=== PATIENT | female | born 1975 | race Caucasian/White ===

== ENCOUNTER 2024-02-03 14:33 | Emergency (ER) | payer OTHER ==
[2024-02-03 14:54] VITALS: BP 180/94; O2SAT 100
[2024-02-03] MEDS: DEXAMETHASONE 10 MG/ML VIAL PO STA (15:50)
[2024-02-03] MEDS: CHERRY SYRUP 10 ML UDC PO ONE (15:50)
[2024-02-03] MEDS: KETOROLAC 30 MG/ML VIAL IM STA (15:51)
--- NOTE | 2024-02-03 15:58 | ED Physician Documentation ---
PD HPI UPPER EXT INJURY - Stated complaint Stated Complaint: LT SHOULDER PX,SWELLING,N/V - Chief complaint Chief Complaint: Ext Problem - History obtained from History obtained from: Patient, Family - History of Present Illness Location: Left, Shoulder Type of injury: Other (over use kneeding cabage) Where injury occurred: Home Timing - onset: Today Timing - duration: Hours Timing - details: Abrupt onset, Still present Improved by: Rest, Immobilization Worsened by: Moving, Palpating Associated symptoms: No: Weakness, Numbness, Tingling, Swelling, Discolored Contributing factors: No: Anticoagulated, Prior ortho surgery Similar symptoms before: No diagnosis Recently seen: Not recently seen - Additonal information Additional information: 48-year-old chronic Ramo presents to the Emergency Department with left shoulder pain. She indicates that she was kneeding [place] when her shoulder began to hurt she continued through and when she finished she had worsening and worsening pain. She has pain with any movement of her shoulder and pain to direct palpation. She has had something similar to this previously which was not as severe and self resolved. Review of Systems Constitutional: denies: Fever Eyes: denies: Decreased vision, Photophobia Ears: denies: Ear pain Nose: denies: Rhinorrhea / runny nose, Congestion Throat: denies: Sore throat Cardiac: denies: Chest pain / pressure, Palpitations Respiratory: denies: Dyspnea, Cough GI: denies: Vomiting, Diarrhea PD PAST MEDICAL HISTORY - Past Medical History Musculoskeletal: Other Other Past Medical History: hx broken neck, chronic pain, ectopic pregnancies x2 - Past Surgical History Past Surgical History: No General: Cholecystectomy - Present Medications Home Medications: Ambulatory Orders Medication Instructions Recorded Confirmed HYDROcod/ACETAM 5/325 [[place] 5/325] 1 - 2 tablet PO Q6H PRN #14 tablet 02/03/24 - Allergies Allergies/Adverse Reactions: Allergies Allergy/AdvReac Type Severity Reaction Status Date / Time ciprofloxacin Allergy Hives Verified 02/03/24 14:51 codeine Allergy Hives Verified 02/03/24 14:51 - Social History Does the pt smoke?: No Smoking Status: Former smoker Does the pt drink ETOH?: Yes Does the pt have substance abuse?: Yes Substance Use and Type: Marijuana PD ED PE NORMAL - Vitals Vital signs reviewed: Yes (hypertensive ) - General General: Alert and oriented X 3, Well developed/nourished, 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 There is pain with any motion of the shoulder. If I placed the patient's shoulder in abduction she is able to hold it there. Movement of the shoulder to this position causes pain. ) Results - Vitals Vitals: Vital Signs - 24 hr 02/03/24 14:40 Temperature 36.5 C Heart Rate 80 Respiratory 18 Rate Blood Pressure 180/94 H O2 Saturation 100 Oxygen O2 Source Room air - Rads (name of study) shoulder L Relevant Findings:: Prelim report reviewed (Impression: Question calcific bursitis. No acute bony abnormality.), EMP independent interpretation of test, See rad report PD Medical Decision Making - ED course Complexity details: reviewed results, re-evaluated patient, considered differential, d/w patient, d/w family ED course: Nadja Ralph presented to the emergency department with left shoulder pain after needing CABG she had specific point tenderness over the biceps tendon insertion and she was able to hold her arm in abduction. An x-ray demonstrated calcification over the biceps tendon. I attribute all this to indicate the patient had calcific tendinitis. She is administered dexamethasone and Toradol we will place the patient on a course of narcotic pain reliever and encouraged her to use [id number] anti-inflammatory and to follow-up with orthopedics. Departure - Departure Disposition: 01 Home, Self Care Clinical Impression: Calcific tendinitis Condition: Stable Instructions: ED Tendinitis Calcific Follow-Up: Phil Braga MD [Provider Admit Priv/Credential] - Prescriptions: HYDROcod/ACETAM 5/325 [[place] 5/325] 1 - 2 tablet PO Q6H PRN #14 tablet PRN Reason: Pain Comments: i, today looks like you have calcific tendinitis and this will resolve by itself eventually. In the meantime we have provided some pain medication to use for acute pain this has been e-scribed to the [facility] in [place]. I recommend treatment of this with ibuprofen or Aleve on a regular basis. Always take this medication with food as it irritates the lining of everyone's stomach. A follow-up with orthopedics is indicated and I have given you the name of a local orthopedic surgeon. Forms: PCP List Discharge Date/Time: 02/03/24 16:36
--- NOTE | 2024-02-03 17:04 | XRAY Report ---
PROCEDURE: Shoulder 2+V LT INDICATIONS: pain TECHNIQUE: 3 views of the shoulder were acquired. COMPARISON: None. FINDINGS: Bones: No fractures or dislocations. No suspicious bony lesions. Visualized ribs appear intact. Soft tissues: There are soft tissue calcifications adjacent to the humeral head. The visualized lung s are within normal limits. IMPRESSION: Question calcific bursitis. No acute bony abnormality. Reviewed by: Rolan Arthur MD on 02/03/2024 5:03 PM PDT Approved by: Rolan Arthur MD on 02/03/2024 5:03 PM PDT Station ID: [id number]
== END 2024-02-03 16:36 | disposition home or self-care (01) ==
LOC: ED 14:33
DX: M75.32 Calcific tendinitis of left shoulder (principal); Z87.891 Personal history of nicotine dependence
CPT/HCPCS: 73030; 96372; 99283; 99284; A9270